=== PATIENT | female | born 1950 | race Caucasian/White ===

== ENCOUNTER 2016-08-30 16:02 | Emergency (ER) | payer BC ==
[2016-08-30] MEDS ORDERED: ASPIRIN 81 MG TABLET, CHEWABLE PO ONE (16:16)
--- NOTE | 2016-08-30 16:22 | ER Document Report ---
ED Medical Screen (RME) - General Stated Complaint: BLOOD PRESSURE PROBLEM Time seen by provider: 16:16 Mode of Arrival: Ambulatory Information source: Patient Notes: Patient complains of headache and dizziness since about lunchtime today. Feels like her heart is racing. States she was started on a new medication about 15 days ago called Olimpia, and in looking at some of the side effects of the drugs, she thinks it's probably from that. She denies chest pain or shortness of breath. Denies recent illness. States she was diagnosed in April with pneumonia, while traveling in [place]. Patient is unaware that she is running a fever. I have greeted and performed a rapid initial assessment of this patient. A comprehensive ED assessment and evaluation of the patient, analysis of test results and completion of the medical decision making process will be conducted by additional ED providers. - Related Data Allergies/Adverse Reactions: Jose's wort Allergy (Verified 08/30/16 16:17) MYCINS Allergy (Uncoded 08/30/16 16:17) Past Medical History - Past Medical History Cardiac Medical History: Reports: Hx Hypertension - controlled with meds Denies: Hx Coronary Artery Disease, Hx Heart Attack Pulmonary Medical History: Denies: Hx Asthma, Hx Bronchitis, Hx COPD, Hx Pneumonia Neurological Medical History: Denies: Hx Cerebrovascular Accident, Hx Seizures Musculoskeltal Medical History: Denies Hx Arthritis Past Surgical History: Denies: Hx Pacemaker - Immunizations Hx Diphtheria, Pertussis, Tetanus Vaccination: Yes Physical Exam - Vital signs Vitals: Temp Pulse Resp BP Pulse Ox 99.7 F 106 H 20 175/100 H 98 08/30/16 16:09 08/30/16 16:09 08/30/16 16:08/30/16 16:09 08/30/16 16:09 - HEENT Head: Normocephalic Eyes: Normal Conjunctiva: Normal Extraocular movements intact: Yes - Cardiovascular Rhythm: Tachycardia Heart sounds: Normal auscultation Course - Vital Signs Vital signs: Temp Pulse Resp BP Pulse Ox 99.7 F 106 H 20 175/100 H 98 08/30/16 16:09 08/30/16 16:09 08/30/16 16:09 08/30/16 16:08/30/16 16:09
[2016-08-30 16:53] LABS: PROTHROMBIN TIME 12.3 SEC (11.4-15.4)
[2016-08-30 16:59] LABS: ABSOLUTE EOSINOPHILS # (AUTO) 0.1 10^3/uL (0.0-0.6); ABSOLUTE LYMPHOCYTES (AUTO) 0.3 10^3/uL (0.5-4.7); ABSOLUTE MONOCYTES (AUTO) 0.3 10^3/uL (0.1-1.4); ABSOLUTE NEUT (AUTO) 5.1 10^3/uL (1.7-8.2); BASOPHILS % (AUTO) 0.3 % (0-2); EOSINOPHILS % (AUTO) 1.5 % (0-6); HEMATOCRIT 41.9 % (36.0-47.0); HEMOGLOBIN 14.2 g/dL (12.0-15.5); HGB HCT DIFFERENCE 0.7; LYMPHOCYTES % (AUTO) 5.1 % (13-45); MEAN CORPUSCULAR HEMOGLOBIN 29.7 pg (27.0-33.4); MEAN CORPUSCULAR VOLUME 87 fl (80-97); MONOCYTES % (AUTO) 4.6 % (3-13); RED CELL DISTRIBUTION WIDTH 14.8 % (11.5-14.0); SEGMENTED NEUTROPHILS % (AUTO) 88.5 % (42-78); WHITE BLOOD COUNT 5.8 10^3/uL (4.0-10.5)
[2016-08-30 17:09] LABS: ALANINE AMINOTRANSFERASE 218 U/L (9-52); ALBUMIN 4.5 g/dL (3.5-5.0); ALKALINE PHOSPHATASE 133 U/L (38-126); ANION GAP 10 (5-19); ASPARTATE AMINO TRANSFERASE 181 U/L (14-36); BILIRUBIN,TOTAL 0.9 mg/dL (0.2-1.3); BLOOD UREA NITROGEN 8 mg/dL (7-20); CALCIUM 9.7 mg/dL (8.4-10.2); CARBON DIOXIDE 26 mmol/L (22-30); CHLORIDE 99 mmol/L (98-107); CREATINE KINASE 52 U/L (30-135); CREATININE RESULT 0.77 mg/dL (0.52-1.25); GLUCOSE 113 mg/dL (75-110); POTASSIUM 4.3 mmol/L (3.6-5.0); SODIUM 135.1 mmol/L (137-145); TOTAL PROTEIN 7.4 g/dL (6.3-8.2)
[2016-08-30 17:21] LABS: CREATINE KINASE MB < 0.22 ng/mL (<4.55); TROPONIN I < 0.012 ng/mL
--- NOTE | 2016-08-30 18:16 | EKG REPORT ---
SEVERITY:- BORDERLINE ECG - SINUS RHYTHM LEFT AXIS DEVIATION NONSPECIFIC ST-T CHANGES- INFERIOR LEADS : Confirmed by: Yannick Dockery MD 30-Aug-2016 18:16:23
[2016-08-30] MEDS ORDERED: IBUPROFEN 400 MG TABLET PO ONE ×2 (19:25→19:51)
--- NOTE | 2016-08-30 19:28 | ER Document Report ---
ED General - General Chief Complaint: High Blood Pressure Stated Complaint: BLOOD PRESSURE PROBLEM Mode of Arrival: Ambulatory Notes: Patient is a 65-year-old female that comes emergency department for chief complaint of "feeling off", patient states that about noon she started to feel like something was different, she states that she has started to get a "foggy" feeling in her head and a mild headache, she states she feels like her energy has dropped. She denies shortness of breath, chest pain, dizziness, nausea or vomiting, cough, abdominal pain, or significant headache at this time. Patient has a history of pulmonary fibrosis, started on Ofev about 2 weeks ago, she takes blood pressure medication metoprolol, she states her blood pressures have been running high since she was started on the new medication. TRAVEL OUTSIDE OF THE [place] IN LAST 30 DAYS: No - Related Data Allergies/Adverse Reactions: Jose's wort Allergy (Verified 08/30/16 16:17) MYCINS Allergy (Uncoded 08/30/16 16:17) Past Medical History - General Information source: Patient - Social History Smoking Status: Never Smoker Chew tobacco use (# tins/day): No Frequency of alcohol use: None Drug Abuse: None Lives with: Family Family History: Reviewed & Not Pertinent Patient has suicidal ideation: No Patient has homicidal ideation: No - Past Medical History Cardiac Medical History: Reports: Hx Hypertension - controlled with meds Denies: Hx Coronary Artery Disease, Hx Heart Attack Pulmonary Medical History: Denies: Hx Asthma, Hx Bronchitis, Hx COPD, Hx Pneumonia Neurological Medical History: Denies: Hx Cerebrovascular Accident, Hx Seizures Renal/ Medical History: Denies: Hx Peritoneal Dialysis Musculoskeltal Medical History: Denies Hx Arthritis Surgical Hx: Negative Past Surgical History: Denies: Hx Pacemaker - Immunizations Hx Diphtheria, Pertussis, Tetanus Vaccination: Yes Review of Systems - Review of Systems Constitutional: See HPI EENT: No symptoms reported Cardiovascular: No symptoms reported Respiratory: No symptoms reported Gastrointestinal: No symptoms reported Genitourinary: No symptoms reported Female Genitourinary: No symptoms reported Musculoskeletal: No symptoms reported Skin: No symptoms reported Hematologic/Lymphatic: No symptoms reported Neurological/Psychological: See HPI Physical Exam - Vital signs Vitals: Temp Pulse Resp BP Pulse Ox 99.7 F 106 H 20 175/100 H 98 08/30/16 16:09 08/30/16 16:09 08/30/16 16:09 08/30/16 16:09 08/30/16 16:09 Interpretation: Normal - General General appearance: Appears well, Alert In distress: None - Alert, well appearing - HEENT Head: Normocephalic, Atraumatic Eyes: Normal Pupils: PERRL - Respiratory Respiratory status: No respiratory distress Chest status: Nontender Breath sounds: Normal. No: Decreased air movement, Nonproductive cough, Wheezing Chest palpation: Normal - Cardiovascular Rhythm: Regular. No: Tachycardia - No tachycardia on my evaluation Heart sounds: Normal auscultation, S1 appreciated, S2 appreciated Murmur: No - Abdominal Inspection: Normal Distension: No distension Bowel sounds: Normal Tenderness: No: Tender, Guarding - Back Back: Normal, Nontender. 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 Patient states she has had pneumonia in the past. No leukocytosis, patient is actually quite well-appearing with a normal neurological exam, no signs of distress. Liver function tests are elevated, patient has recently started medication for pulmonary fibrosis, medication is Ofev. Patient was provided with a copy of her labs including liver functioning tests, patient will be prescribed antibiotic therapy for suspected pneumonia, patient given first dose tonight. Urinalysis unremarkable. Patient states that she has a follow-up appointment today with her provider, discussed return precautions including difficulty breathing, chest pain, severe headache, or any other concerning symptoms. Patient states satisfaction and agreement. - Vital Signs Vital signs: Temp Pulse Resp BP Pulse Ox 98.5 F 91 18 132/92 H 97 08/30/16 21:56 08/30/16 21:56 08/30/16 21:56 08/30/16 21:56 08/30/16 21:56 - Laboratory Result Diagrams: 08/30/16 16:33 08/30/16 16:33 Laboratory results interpreted by me: 08/30/16 08/30/16 08/30/16 16:33 16:33 20:30 RDW 14.8 H Seg Neutrophils % 88.5 H Lymphocytes % 5.1 L Absolute Lymphocytes 0.3 L Sodium 135.1 L Glucose 113 H AST 181 H ALT 218 H Alkaline Phosphatase 133 H Urine Blood MODERATE H Discharge - Discharge Clinical Impression: Elevated liver function tests Fever Qualifiers: Fever type: unspecified Qualified Code(s): R50.9 - Fever, unspecified Pneumonia Qualifiers: Pneumonia type: due to unspecified organism Laterality: bilateral Lung location : unspecified part of lung Qualified Code(s): J18.9 - Pneumonia, unspecified organism Condition: Stable Disposition: HOME, SELF-CARE Additional Instructions: Chest x-ray is consistent with pneumonia, please take the Levaquin antibiotic as directed, take ibuprofen for fever, rest and stay hydrated. Follow-up tomorrow with your primary care provider, take the laboratory values with you. Please return the emergency department for any concerning or worsening symptoms including difficulty breathing, uncontrolled fever, abdominal pain, or if something is not right. Prescriptions: Levofloxacin [Levaquin 500 mg Tablet] 500 mg PO DAILY #10 tablet Referrals: CASSIE PRICE MD [Primary Care Provider] - Follow up as needed
[2016-08-30] MEDS ORDERED: LEVOFLOXACIN 500 MG TABLET PO ONE (20:27)
[2016-08-30 20:53] LABS: APPEARANCE,URINE CLEAR; BILIRUBIN,URINE NEGATIVE (NEGATIVE); GLUCOSE, URINE NEGATIVE (NEGATIVE); KETONES,URINE NEGATIVE (NEGATIVE); LEUKOCYTE ESTERASE,URINE NEGATIVE (NEGATIVE); NITRITE,URINE NEGATIVE (NEGATIVE); PROTEIN,URINE NEGATIVE (NEGATIVE); URINE SPECIFIC GRAVITY 1.006; UROBILINOGEN,URINE NEGATIVE mg/dL (<2.0)
[2016-08-30 21:58] VITALS: BP 132/92
== END 2016-08-30 21:58 | disposition home or self-care (01) ==
LOC: ER 16:02
DX: J18.9 Pneumonia, unspecified organism (principal); R50.9 Fever, unspecified; R79.89 Other specified abnormal findings of blood chemistry; I10 Essential (primary) hypertension; R51 Headache; J84.10 Pulmonary fibrosis, unspecified; Z79.899 Other long term (current) drug therapy; Z88.8 Allergy status to other drugs, medicaments and biological substances
CPT/HCPCS: 93005; 99284; 36415; 87040; 82553; 82550; 85025; 85610; 80053; 81001; 84484; 71010; 93010; J3490

== ENCOUNTER 2018-12-17 13:07 | Emergency (ER) | payer OTHER, MEDICARE ==
[2018-12-17 13:43] VITALS: BP 172/85
[2018-12-17] MEDS ORDERED: IBUPROFEN 600 MG TABLET PO ONE (16:41)
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
== END 2018-12-17 18:12 | disposition home or self-care (01) ==
LOC: ER 13:07
DX: S40.012A Contusion of left shoulder, initial encounter (principal); S30.1XXA Contusion of abdominal wall, initial encounter; S80.812A Abrasion, left lower leg, initial encounter; M25.512 Pain in left shoulder; M54.2 Cervicalgia; V49.40XA Driver injured in collision with unspecified motor vehicles in traffic accident, initial encounter; I10 Essential (primary) hypertension; J84.10 Pulmonary fibrosis, unspecified
CPT/HCPCS: 71046; 99283

== ENCOUNTER 2020-01-18 10:27 | Emergency (ER) | payer MEDICARE ==
--- NOTE | 2020-01-18 11:22 | ER Document Report ---
ED Medical Screen (RME) - General Chief Complaint: Fall Injury Stated Complaint: BACK PAIN Time Seen by Provider: 01/18/20 11:09 Primary Care Provider: CASSIE PRICE MD [Primary Care Provider] - Follow up as needed Mode of Arrival: Medic Information source: Patient Notes: 69-year-old female presented to ED for fall down 5 stairs with severe left pelvic pain and injury. She came back via EMS. She does have a history of pulmonary fibrosis. She is alert oriented respirations regular nonlabored speaking in full sentences. She is in a 5 out of 5 pain and she cannot stand his wheelchair. I have spoken to the charge nurse. I will order morphine and Zofran IV that she will get this and she gets in the room and have ordered a CT of the abdomen pelvis. I have greeted and performed a rapid initial assessment of this patient. A comprehensive ED assessment and evaluation of the patient, analysis of test results and completion of medical decision making process will be conducted by an additional ED providers. TRAVEL OUTSIDE OF THE [place] IN LAST 30 DAYS: No - Related Data Allergies/Adverse Reactions: Jose's wort Allergy (Verified 12/17/18 13:12) MYCINS Allergy (Uncoded 12/17/18 13:12) ofed Allergy (Uncoded 12/17/18 13:12) Past Medical History - Past Medical History Cardiac Medical History: Reports: Hx Hypercholesterolemia, Hx Hypertension - controlled with meds Denies: Hx Coronary Artery Disease, Hx Heart Attack Pulmonary Medical History: Denies: Hx Asthma, Hx Bronchitis, Hx COPD, Hx Pneumonia Neurological Medical History: Denies: Hx Cerebrovascular Accident, Hx Seizures Renal/ Medical History: Denies: Hx Peritoneal Dialysis Musculoskeltal Medical History: Denies Hx Arthritis Past Surgical History: Reports: Hx Genitourinary Surgery - bladder sling, Hx Hysterectomy. Denies: Hx Pacemaker - Immunizations Hx Diphtheria, Pertussis, Tetanus Vaccination: Yes Physical Exam - Vital signs Vitals: Temp Pulse Resp BP Pulse Ox 98.2 F 60 16 121/62 100 01/18/20 10:42 01/18/20 10:42 01/18/20 10:42 01/18/20 10:42 01/18/20 10:42 Course - Vital Signs Vital signs: Temp Pulse Resp BP Pulse Ox 98.2 F 60 16 121/62 100 01/18/20 10:42 01/18/20 10:42 01/18/20 10:42 01/18/20 10:42 01/18/20 10:42 Doctor's Discharge - Discharge Referrals: CASSIE PRICE MD [Primary Care Provider] - Follow up as needed
[2020-01-18] MEDS ORDERED: ONDANSETRON HCL INJ/PF 4 MG/2 ML SDV IV ONE (11:23)
[2020-01-18] MEDS ORDERED: MORPHINE SULFATE 10 MG/ML INJ IV ONE (11:23)
[2020-01-18] MEDS ORDERED: NORMAL SALINE 1000 ML 1,000 ML IV ONE (11:23)
--- NOTE | 2020-01-18 11:28 | ER Document Report ---
Doctor's Note Notes: 01/18/20 11:27 Informed charge patient states she is very lightheaded and feels like she is going to pass out. She is pale. Ice applied to her face has been washing face PCT refusing vital signs.
[2020-01-18 11:56] LABS: INTERNATIONAL RATION (INR) 0.94; PROTHROMBIN TIME 12.6 SEC (11.4-15.4)
[2020-01-18 11:58] LABS: ABSOLUTE EOSINOPHILS # (AUTO) 0.1 10^3/uL (0.0-0.6); ABSOLUTE LYMPHOCYTES (AUTO) 1.2 10^3/uL (0.5-4.7); ABSOLUTE MONOCYTES (AUTO) 0.7 10^3/uL (0.1-1.4); ABSOLUTE NEUT (AUTO) 9.1 10^3/uL (1.7-8.2); BASOPHILS % (AUTO) 0.2 % (0-2); EOSINOPHILS % (AUTO) 0.5 % (0-6); HEMATOCRIT 36.8 % (36.0-47.0); HEMOGLOBIN 12.2 g/dL (12.0-15.5); LYMPHOCYTES % (AUTO) 11.2 % (13-45); MEAN CORPUSCULAR HEMOGLOBIN 29.5 pg (27.0-33.4); MEAN CORPUSCULAR VOLUME 89 fl (80-97); PLATELET COUNT 227 10^3/uL (150-450); RED BLOOD COUNT 4.12 10^6/uL (3.72-5.28); RED CELL DISTRIBUTION WIDTH 14.1 % (11.5-14.0); SEGMENTED NEUTROPHILS % (AUTO) 82.1 % (42-78); TOTAL CELLS COUNTED % (AUTO) 100 %; WHITE BLOOD COUNT 11.1 10^3/uL (4.0-10.5)
--- NOTE | 2020-01-18 12:14 | RADIOLOGY REPORT (SQ) ---
EXAM DESCRIPTION: CT ABD/PELVIS NO ORAL OR IV IMAGES COMPLETED DATE/TIME: 01/18/2020 11:55 am REASON FOR STUDY: Fall down 5 stairs severe pain left pelvis COMPARISON: CT thoracic spine and lumbar spine 08/23/2008 TECHNIQUE: CT scan of the abdomen and pelvis performed without intravenous or oral contrast. Images reviewed with lung, soft tissue, and bone windows. Reconstructed coronal and sagittal MPR images revi ewed. All images stored on PACS. All CT scanners at this facility use dose modulation, iterative reconstruction, and/or weight based d osing when appropriate to reduce radiation dose to as low as reasonably achievable (ALARA). [facility]: Dose Right [facility]: CareDose [facility]: Dose Right [facility]: Teradose 4D [facility]: [employer] RADIATION DOSE: mGy. LIMITATIONS: None. FINDINGS: LOWER CHEST: Changes of fibrosis at the visualized lung bases. No consolidation or pleur al effusion. NON-CONTRASTED LIVER, SPLEEN, ADRENALS: Evaluation limited by lack of IV contrast. The dome of the l iver is excluded from the [id number]. No perihepatic or perisplenic fluid collection is identifie d. PANCREAS: No peripancreatic inflammatory changes or fluid collections. GALLBLADDER: No identified stones by CT criteria. No inflammatory changes to suggest cholecystitis. RIGHT KIDNEY AND URETER: Assessment for masses or injury limited by lack of IV contrast. No signifi cant calcifications. No hydronephrosis or hydroureter. LEFT KIDNEY AND URETER: Assessment for masses or injury limited by lack of IV contrast. No signific ant calcifications. No hydronephrosis or hydroureter. AORTA AND RETROPERITONEUM: Atherosclerotic calcifications at the abdominal and its branches. No abdo steffen aortic aneurysm. No retroperitoneal masses or hemorrhage. BOWEL AND PERITONEAL CAVITY: No dilated bowel loops or inflammatory changes. No free fluid. APPENDIX: Not visualized. PELVIS, BLADDER, AND ABDOMINAL WALL:No pelvic mass. No free fluid. Bladder partially distended. BONES: No significant findings. IMPRESSION: No acute findings in the abdomen or pelvis on unenhanced CT. COMMENT: Quality ID # [id number]: Final reports with documentation of one or more dose reduction techniques (e.g., Automated exposure control, adjustment of the mA and/or kV according to patient size, use of iterative reconstruction technique) TECHNICAL DOCUMENTATION: JOB ID: [id number] [employer]- All Rights Reserved Reading location - IP/workstation name: [email or web address]
[2020-01-18 12:16] LABS: ALBUMIN 3.7 g/dL (3.5-5.0); ALKALINE PHOSPHATASE 58 U/L (38-126); ANION GAP 6 (5-19); ASPARTATE AMINO TRANSFERASE 16 U/L (14-36); BILIRUBIN,TOTAL 0.4 mg/dL (0.2-1.3); BLOOD UREA NITROGEN 13 mg/dL (7-20); CALCIUM 8.8 mg/dL (8.4-10.2); CARBON DIOXIDE 26 mmol/L (22-30); CHLORIDE 105 mmol/L (98-107); GLUCOSE 138 mg/dL (75-110); POTASSIUM 3.7 mmol/L (3.6-5.0); TOTAL PROTEIN 5.8 g/dL (6.3-8.2)
[2020-01-18 12:18] LABS: PARTIAL THROMBOPLASTIN TIME < 20.0 SEC (23.5-35.8)
[2020-01-18] MEDS ORDERED: KETOROLAC TROMETHAMINE INJ/PF 30 MG/1 ML SDV IV ONE (13:35)
[2020-01-18] MEDS ORDERED: DIAZEPAM INJ 10 MG/2 ML DISP.SYRIN IV ONE (13:36)
--- NOTE | 2020-01-18 16:35 | ER Document Report ---
ED Fall - General Chief Complaint: Back Pain Stated Complaint: BACK PAIN Time Seen by Provider: 01/18/20 11:09 Primary Care Provider: CASSIE PRICE MD [Primary Care Provider] - Follow up as needed Mode of Arrival: Medic Information source: Patient Notes: This 69-year-old woman presents to the emergency department with a history of a fall. Apparently she misstepped while going down steps and fell 6 steps and hit the last step on the left flank area. She denies a head injury or loss of consciousness. She complains of severe pain in the left flank region. She denies numbness or tingling in the lower extremity yesterday TRAVEL OUTSIDE OF THE [place] IN LAST 30 DAYS: No - Related data Allergies/Adverse Reactions: Jose's wort Allergy (Verified 12/17/18 13:12) MYCINS Allergy (Uncoded 12/17/18 13:12) ofed Allergy (Uncoded 12/17/18 13:12) Past Medical History - General Information source: Patient - Social History Smoking Status: Never Smoker Family History: Reviewed & Not Pertinent - Past Medical History Cardiac Medical History: Reports: Hx Hypercholesterolemia, Hx Hypertension - controlled with meds Denies: Hx Coronary Artery Disease, Hx Heart Attack Pulmonary Medical History: Denies: Hx Asthma, Hx Bronchitis, Hx COPD, Hx Pneumonia Neurological Medical History: Denies: Hx Cerebrovascular Accident, Hx Seizures Renal/ Medical History: Denies: Hx Peritoneal Dialysis Musculoskeletal Medical History: Denies Hx Arthritis Past Surgical History: Reports: Hx Genitourinary Surgery - bladder sling, Hx Hysterectomy. Denies: Hx Pacemaker - Immunizations Hx Diphtheria, Pertussis, Tetanus Vaccination: Yes Review of Systems - Review of Systems Notes: Constitutional: Negative for fever. HENT: Negative for sore throat. Eyes: Negative for visual changes. Cardiovascular: Negative for chest pain. Respiratory: Negative for shortness of breath. Gastrointestinal: Negative for abdominal pain, vomiting or diarrhea. Genitourinary: Negative for dysuria. Musculoskeletal: + Tenderness in the left flank area Skin: Negative for rash. Neurological: Negative for headaches, weakness or numbness. 10 point ROS negative except as marked above and in HPI. Physical Exam - Vital signs Vitals: Temp Pulse Resp BP Pulse Ox 98.2 F 60 16 121/62 100 01/18/20 10:42 01/18/20 10:42 01/18/20 10:42 01/18/20 10:42 01/18/20 10:42 - Notes Notes: PHYSICAL EXAMINATION: Physical Exam: General: Well-nourished well-developed 69-year-old woman in mild distress secondary to pain. HEENT: NC/AT, pupils equal round and reactive to light, MM moist,nares clear, oropharynx clear, airway patent Neck: supple, no adenopathy, no masses. Good range of motion Lungs: clear, no wheezing, no rales no rhonchi CVS: Regular rate and rhythm no murmur gallop or rub Abdomen: Soft, active, nontender, no masses, no hepatosplenomegaly Back: Tenderness in the left flank area, no tenderness over the pelvis, no tenderness over the rib cage. No obvious bruising. Ext: No edema, clubbing or cyanosis. Neuro: Alert and responsive, moving all 4 extremities on command, cranial nerves intact, no focal findings Skin: Intact no open lesions, no rash PSYCH: Normal mood, normal affect. Course - Re-evaluation Re-evalutation: 01/18/20 16:[address] scan of the abdomen and pelvis was performed which revealed negative for intra-abdominal renal involvement. Laboratory data has also nondiagnostic. Patient was allowed to ambulate, she needed some assistance. She is tilted to the left and walking gingerly. She has been discharged home with Ferriday, baclofen, Naprosyn with instructions to use a cold compress to the area of pain and discomfort. She is instructed to follow-up with her primary care doctor as needed If your symptoms are worsening or if there are other concerns she may return to the emergency department for further evaluation and treatment. HOME CARE INSTRUCTIONS & INFORMATION: Thank you for choosing us for your medical needs. We hope you're satisfied with the care you received. After you leave, you must properly care for your problem and, at the same time, observe its progress. Any condition can change. Some illnesses can change rapidly over hours or days. If your condition worsens, return to the Emergency Department or see your physician promptly. ABOUT YOUR X-RAYS AND EKG'S: If you had an EKG or X-rays taken, they have been read by the Emergency Physician. The X-rays and EKG's will also be read by a Radiologist or Gas Plant Technician within 24 hours. If discrepancies are noted, you will be notified by telephone. Please be certain the ED has a correct telephone number & address where you can be reached. Also, realize that some fractures or abnormalities do not show up on initial X-rays. If your symptoms continue, see your physician. ABOUT YOUR LABORATORY TEST: If you had laboratory tests, the results have been reviewed by the Emergency Physician. Some test results (for example cultures) may not be available for several days. You will be contacted if any test result shows you need additional treatment. Please be certain the ED has a correct telephone number and address where you can be reached. ABOUT YOUR MEDICATIONS: You will receive instructions on how to take your medicine on the prescription label you receive. Additional information may be provided by the Pharmacy. If you have questions afterwards, call the ED for clarification or further instructions. Some prescribed medications may cause drowsiness. Do not perform tasks such as driving a car or operating machinery without consulting your Pharmacist. If you feel you need a refill of pain medication, your condition will need re-evaluation. Please do not call for a refill of any medication. ABOUT YOUR SIGNATURE: Signature of this document acknowledges to followin. Understanding that you received emergency treatment and that you may be released before al medical problems are known or treated. Please be certain the ED has a correct phone number & address where you can be reached. 2. Acknowledgement that you will arrange for follow-up care as recommended. 3. Authorization for the Emergency Physician to provide information to your follow-up Physician in order to maximize your care. AT ANY TIME, IF YOUR SYMPTOMS CHANGE SIGNIFICANTLY OR WORSEN OR YOU DEVELOP NEW SYMPTOMS, RETURN TO THE EMERGENCY DEPARTMENT IMMEDIATELY FOR RE-EVALUATION. OUR GOAL IS TO PROVIDE EXCELLENT MEDICAL CARE! WE HOPE THAT WE HAVE MET YOUR EXPECTATIONS DURING YOUR EMERGENCY DEPARTMENT VISIT AND THAT YOU FEEL YOU HAVE RECEIVED EXCELLENT CARE! - Vital Signs Vital signs: Temp Pulse Resp BP Pulse Ox 98.2 F 60 17 112/63 100 01/18/20 10:42 01/18/20 10:42 01/18/20 14:00 01/18/20 14:00 01/18/20 14:00 - Laboratory Result Diagrams: 01/18/20 11:42 01/18/20 11:42 Laboratory results interpreted by me: 01/18/20 01/18/20 01/18/20 11:42 11:42 11:42 WBC 11.1 H RDW 14.1 H Lymph % (Auto) 11.2 L Absolute Neuts (auto) 9.1 H Seg Neutrophils % 82.1 H APTT < 20.0 L* Sodium 136.5 L Glucose 138 H Total Protein 5.8 L - Diagnostic Test Radiology reviewed: Image reviewed, Reports reviewed Radiology results interpreted by me: 01/18/20 16:40 CT of the abdomen and pelvis: No acute intra-abdominal findings, no hemorrhage Discharge - Discharge Clinical Impression: Muscle spasm of back, Fall (on) (from) other stairs and steps, initial encounter Contusion of flank Qualifiers: Encounter type: initial encounter Qualified Code(s): S30.1XXA - Contusion of abdominal wall, initial encounter Condition: Good Disposition: HOME, SELF-CARE Instructions: Ice Packs ([facility]), Oral Narcotic Medication ([facility]) Additional Instructions: You were seen in the emergency department today with injuries sustained from your fall. This appears to be as soft tissue injury with associated muscle injury. Please take the pain medications as prescribed hydrocodone, baclofen, and Naprosyn. Please use a cold pack to the area of pain, please began stretching exercises as soon as possible. Please follow-up with your primary care doctor for possible physical therapy consultation if you are not improving significantly over the next 48 hours. If your symptoms are worsening or if you have other concerns you may return to the emergency department for further evaluation and treatment. HOME CARE INSTRUCTIONS & INFORMATION: Thank you for choosing us for your medical needs. We hope you're satisfied with the care you received. After you leave, you must properly care for your problem and, at the same time, observe its progress. Any condition can change. Some illnesses can change rapidly over hours or days. If your condition worsens, return to the Emergency Department or see your physician promptly. ABOUT YOUR X-RAYS AND EKG'S: If you had an EKG or X-rays taken, they have been read by the Emergency Physician. The X-rays and EKG's will also be read by a Radiologist or Gas Plant Technician within 24 hours. If discrepancies are noted, you will be notified by telephone. Please be certain the ED has a correct telephone number & address where you can be reached. Also, realize that some fractures or abnormalities do not show up on initial X-rays. If your symptoms continue, see your physician. ABOUT YOUR LABORATORY TEST: If you had laboratory tests, the results have been reviewed by the Emergency Physician. Some test results (for example cultures) may not be available for several days. You will be contacted if any test result shows you need additional treatment. Please be certain the ED has a correct telephone number and address where you can be reached. ABOUT YOUR MEDICATIONS: You will receive instructions on how to take your medicine on the prescription label you receive. Additional information may be provided by the Pharmacy. If you have questions afterwards, call the ED for c larification or further instructions. Some prescribed medications may cause drowsiness. Do not perform tasks such as driving a car or operating machinery without consulting your Pharmacist. If you feel you need a refill of pain medication, your condition will need re-evaluation. Please do not call for a refill of any medication. ABOUT YOUR SIGNATURE: Signature of this document acknowledges to followin. Understanding that you received emergency treatment and that you may be released before al medical problems are known or treated. Please be certain the ED has a correct phone number & address where you can be reached. 2. Acknowledgement that you will arrange for follow-up care as recommended. 3. Authorization for the Emergency Physician to provide information to your follow-up Physician in order to maximize your care. AT ANY TIME, IF YOUR SYMPTOMS CHANGE SIGNIFICANTLY OR WORSEN OR YOU DEVELOP NEW SYMPTOMS, RETURN TO THE EMERGENCY DEPARTMENT IMMEDIATELY FOR RE-EVALUATION. OUR GOAL IS TO PROVIDE EXCELLENT MEDICAL CARE! WE HOPE THAT WE HAVE MET YOUR EXPECTATIONS DURING YOUR EMERGENCY DEPARTMENT VISIT AND THAT YOU FEEL YOU HAVE RECEIVED EXCELLENT CARE! Prescriptions: Baclofen [Baclofen 10 mg Tablet] 10 mg PO TID #30 tab Naproxen [Naprosyn] 500 mg PO BID #20 tablet Hydrocodone/Acetaminophen [Ferriday 5-325 mg Tablet] 1 tab PO Q6 PRN #10 tablet PRN Reason: Referrals: CASSIE PRICE MD [Primary Care Provider] - Follow up as needed
[2020-01-18 17:10] VITALS: BP 123/76
== END 2020-01-18 17:10 | disposition home or self-care (01) ==
LOC: ER 10:27
DX: S30.1XXA Contusion of abdominal wall, initial encounter (principal); R10.9 Unspecified abdominal pain; W10.9XXA Fall (on) (from) unspecified stairs and steps, initial encounter; M62.830 Muscle spasm of back; I10 Essential (primary) hypertension; Z88.8 Allergy status to other drugs, medicaments and biological substances; Z88.1 Allergy status to other antibiotic agents
CPT/HCPCS: 99284; 96374; 96361; 96375; 36415; 85025; 85610; 85730; 80053; 74176; J3360; J1885; J2270; J2405; J7030

== ENCOUNTER → 2020-01-20 | Outpatient (CLI) | payer MEDICARE ==
--- NOTE | 2020-01-20 17:17 | RADIOLOGY REPORT (SQ) ---
EXAM DESCRIPTION: MRI LT LOWER JOINT WITHOUT IMAGES COMPLETED DATE/TIME: 01/20/2020 3:55 pm REASON FOR STUDY: W19.XXXA UNSPECIFIED FALL, INITIAL ENCOUNTER W19.XXXA UNSPECIFIED FALL, INITIAL E NCOUNTER R10.9 UNSPECIFIED ABDOMINAL PAIN M25.552 PAIN IN LEFT HIP COMPARISON: None. TECHNIQUE: [employer] images acquired and stored on PACS. Multiplanar images to include fat sensitive s equences as T1, fluid sensitive sequences as T2/STIR and gradient echo sequences. Large FOV fat and f luid sensitive sequences include pelvis and opposite hip. LIMITATIONS: None. FINDINGS: BONE CORTEX AND MARROW: No generalized marrow replacement. No occult fracture. No worriso me bone lesions. TARGETED HIP: FEMORAL HEAD: No occult fracture. No osteophytes or subchondral cysts. Normal sphericity of femoral h ead/neck junction. No acetabular dysplasia. No evidence femoroacetabular impingement. No significant effusion. ACETABULUM: No acetabular dysplasia. No subchondral cysts. LABRUM: No loss of cartilage or delamination. Labrum is intact. No paralabral cysts. TROCHANTER: No trochanteric bursal effusion. No edema/fluid at the insertions of the gluteus medius and gluteus minimus. OPPOSITE HIP: Limited evaluation. No worrisome bone lesions. No significant effusion. PELVIS, LOWER LUMBAR SPINE, SACROILIAC JOINTS: PELVIS : No insufficiency/stress fractures. No significant degenerative changes. Sacroiliac joints normal. L SPINE: No significant osteophytes or degenerative changes of the visualized lumbar spine. MUSCLES AND SOFT TISSUES: Adductors and piriformis normal. Abductors and greater trochanteric bursa n ormal without edema or fluid. Iliopsoas bursa without fluid. Hamstring attachments without edema or t ear. PELVIC SOFT TISSUES: No masses or adenopathy. Prior hysterectomy. SCIATIC NERVE: Identified, without masses or abnormal signal. OTHER: No other significant finding. IMPRESSION: No evidence for acute injury. TECHNICAL DOCUMENTATION: JOB ID: [id number] 2010 [employer]- All Rights Reserved Reading location - IP/workstation name: [email or web address]
== END ==
LOC: RAD 14:47
PROVIDERS: ATTEND Internal Medicine
DX: M25.552 Pain in left hip (principal); W19.XXXA Unspecified fall, initial encounter